=== PATIENT | female | born 1965 | race Caucasian/White ===

== ENCOUNTER 2017-08-01 13:28 | Emergency (ER) | payer OTHER ==
[~2017-08-01] VITALS: Ht 162.6 cm; Wt 63.5 kg
[~2017-08-01 13:28] MED LIST: TRAM-48 PO
[2017-08-01 13:32] VITALS: BP 155/72
[2017-08-01] MEDS ORDERED: METH4TAB2 PO (14:36)
[2017-08-01] MEDS ORDERED: CYCL10TA2 PO (14:36)
[2017-08-01] MEDS ORDERED: DICL50TA4 PO (14:36)
--- NOTE | 2017-08-01 14:36 | PHYS DOC ---
Past Medical History Past Medical History: Other Additional Past Medical Histor: electrocution Past Surgical History: Alcohol Use: None Drug Use: None Adult General Chief Complaint Chief Complaint: BACK PAIN OR INJURY HPI HPI Patient is a 52 year old female who presents with mild thoracic and lumbar spine back pain after twisting wrong at work. Patient denies falling. Denies pain radiating to bilateral lower extremities. Denies any loss of bowel bladder function. She states her pain is constant and worse on certain movements. Review of Systems Review of Systems Constitutional: Denies fever or chills [] Musculoskeletal: Mid and low back pain Integument: Denies rash or skin lesions [] Neurologic: Denies headache, focal weakness or sensory changes [] All other systems were reviewed and found to be within normal limits, except as documented in this note. Allergies Allergies Allergies Coded Allergies Type Severity Reaction Last Updated Verified No Known Drug Allergies 04/28/14 No Physical Exam Physical Exam Constitutional: Well developed, well nourished, no acute distress, non-toxic appearance. [] Skin: Warm, dry, no erythema, no rash. [] Back: Mild thoracic and lumbar spine paraspinal tenderness, no midline thoracic or lumbar spine tenderness, no CVA tenderness. [] Extremities: No tenderness, no cyanosis, no clubbing, ROM intact, no edema. [] Neurologic: Alert and oriented X 3, normal motor function, normal sensory function, no focal deficits noted. [] Psychologic: Affect normal, judgement normal, mood normal. [] Current Patient Data Vital Signs Vital Signs Date Time Temp Pulse Resp B/P (MAP) Pulse Ox O2 Delivery O2 Flow Rate FiO2 08/01/17 13:32 98.1 88 20 100 Room Air 98.1 EKG EKG [] Radiology/Procedures Radiology/Procedures [] Course & Med Decision Making Course & Med Decision Making Pertinent Labs and Imaging studies reviewed. (See chart for details) Patient is in the ED with thoracic and lumbar spine muscle strain. Will be discharged with Medrol Dosepak cyclobenzaprine and diclofenac. Follow-up with PCP in 1-2 weeks. Heat recommended to the affected areas. Dragon Disclaimer Dragon Disclaimer This electronic medical record was generated, in whole or in part, using a voice recognition dictation system. Departure Departure Impression: Primary Impression: Acute thoracic myofascial strain Additional Impression: Lumbar strain Disposition: HOME, SELF-CARE Condition: STABLE Referrals: NO PCP (PCP) follow up with your doctor in one week Patient Instructions: Lumbosacral Strain, Thoracic Strain Additional Instructions: You were seen for thoracic and lumbar spine muscle strain, apply heat to the affected areas. Take the prescribed medicines as ordered. Do not drive or operate machinery on the cyclobenzaprine. Scripts Methylprednisolone (MEDROL) 4 Mg Tab.ds.pk 1 PKG PO UD, #1 PKG Prov: LILIANE CHILDS APRN 08/01/17 Cyclobenzaprine Hcl (CYCLOBENZAPRINE HCL) 10 Mg Tablet 1 TAB PO TID, #30 TAB Prov: LILIANE CHILDS APRN 08/01/17 Diclofenac Sodium (DICLOFENAC SODIUM) 50 Mg Tablet.dr 1 TAB PO BID, #30 TAB 0 Refills Prov: LILINAE CHILDS APRN 08/01/17 Problem Qualifiers Primary Impression: Acute thoracic myofascial strain Encounter type: initial encounter Qualified Codes: S29.019A - Strain of muscle and tendon of unspecified wall of thorax, initial encounter Additional Impression: Lumbar strain Encounter type: initial encounter Qualified Codes: S39.012A - Strain of muscle, fascia and tendon of lower back, initial encounter LILIANE CHILDS APRN Aug 01, 2017 14:36
== END 2017-08-01 14:41 | disposition home or self-care (01) ==
LOC: ER 13:28
DX: S29.012A Strain of muscle and tendon of back wall of thorax, initial encounter (principal); S39.012A Strain of muscle, fascia and tendon of lower back, initial encounter; X58.XXXA Exposure to other specified factors, initial encounter; Y93.89 Activity, other specified; Y92.69 Other specified industrial and construction area as the place of occurrence of the external cause; Y99.8 Other external cause status
CPT/HCPCS: 99283